=== PATIENT | male | born 1965 | race African-American/Black ===

== ENCOUNTER 2019-02-13 03:02 | Emergency (ER) | payer MEDICAID ==
[~2019-02-13] VITALS: Ht 185.4 cm; Wt 66.0 kg
[2019-02-13] MEDS ORDERED: HYDROCODONE/ACETAMINOPHEN 5/325MG TABLET PO ONE (03:45)
[2019-02-13] MEDS ORDERED: KETOROLAC 30MG/ML VIAL IM ONE (03:45)
[2019-02-13 04:37] LABS: CLARITY URINE CLEAR (CLEAR); COLOR URINE YELLOW (YELLOW); KETONES URINE NEGATIVE (NEGATIVE); LEUKOCYTE ESTERASE URINE TRACE (NEGATIVE); NITRITE URINE NEGATIVE (NEGATIVE); OCCULT BLOOD URINE NEGATIVE (NEGATIVE); PROTEIN URINE NEGATIVE (NEGATIVE); SPECIFIC GRAVITY URINE 1.002 (1.005-1.030); UROBILINOGEN URINE 0.2 E.U./dL (0.2-1.0)
[2019-02-13] MEDS ORDERED: AZITHROMYCIN 500 MG TABLET PO ONE (07:00)
[2019-02-13] MEDS ORDERED: CEFTRIAXONE SODIUM 250 MG/VIAL IM ONE (07:00)
[2019-02-13 09:00] VITALS: BP 117/65
== END 2019-02-13 09:33 | disposition home or self-care (01) ==
LOC: ER 03:02
DX: N45.1 Epididymitis (principal); N50.89 Other specified disorders of the male genital organs; M19.90 Unspecified osteoarthritis, unspecified site; F17.210 Nicotine dependence, cigarettes, uncomplicated
CPT/HCPCS: 76870; 81003; 93976; 96372; 99284; 99406; J0696; J1885